=== PATIENT | male | born 1965 | race Caucasian/White ===

== ENCOUNTER 2017-04-24 22:00 | Emergency (ER) | payer BC ==
[2017-04-24] MEDS ORDERED: NORCO 5/325 MG PO ONE (22:36)
--- NOTE | 2017-04-24 22:37 | ERPHSYRPT ---
- History of Present Illness Time Seen by Provider: 04/24/17 22:25 Source: patient Exam Limitations: no limitations Physician History: THREE DAYS AGO PT WAS ON A [id number] AT [facility], LANDED WRONG AND SINCE HAS HAD ACHY PAIN IN THE RIGHT RIBS AND MID UPPER BACK; DENIES ABDOMINAL PAIN, NUMBNESS, VOMITING, FEVER. RIGHT RIB PAIN OCCURS ONLY WITH MOVEMENT AND DEEP BREATHING. Allergies/Adverse Reactions: No Known Drug Allergies Allergy (Unverified 06/15/15 09:59) Hx Tetanus, Diphtheria Vaccination/Date Given: No Hx Influenza Vaccination/Date Given: No Hx Pneumococcal Vaccination/Date Given: No - Review of Systems Constitutional: No Fever Cardiac: Other (RIGHT RIB PAIN) Abdominal/Gastrointestinal: No Abdominal Pain, No Vomiting Musculoskeletal: Back Pain (MID UPPER BACK PAIN) Neurological: No Headache All Other Systems: Reviewed and Negative - Past Medical History Pertinent Past Medical History: Yes Neurological History: No Pertinent History ENT History: No Pertinent History Cardiac History: High Cholesterol, Hypertension Respiratory History: Sleep Apnea Endocrine Medical History: No Pertinent History Musculoskeletal History: Arthritis, Other GI Medical History: No Pertinent History History: No Pertinent History Psycho-Social History: No Pertinent History Male Reproductive Disorders: No Pertinent History Other Medical History: Gout - Past Surgical History Past Surgical History: Yes Neuro Surgical History: No Pertinent History Cardiac: No Pertinent History Respiratory: No Pertinent History Gastrointestinal: Hernia Repair Genitourinary: No Pertinent History Musculoskeletal: Orthopedic Surgery Male Surgical History: No Pertinent History Other Surgical History: rt elbow i/d,Knee arthroscopy - Social History Smoking Status: Never smoker Exposure to second hand smoke: No Drug Use: none Patient Lives Alone: No - Nursing Vital Signs Nursing Vital Signs: Initial Vital Signs Temperature 98.0 F 04/24/17 22:34 Pulse Rate 54 L 04/24/17 22:34 Respiratory Rate 18 04/24/17 22:34 Blood Pressure 147/102 04/24/17 22:34 O2 Sat by Pulse Oximetry 95 04/24/17 22:34 Pain Scale Pain Intensity 10 - Physical Exam General Appearance: alert Eye Exam: PERRL/EOMI Ears, Nose, Throat Exam: pharynx normal, moist mucous membranes, other (CERUMEN OCCLUSION OF LEFT EAR) Neck Exam: normal inspection Respiratory Exam: normal breath sounds, No chest tenderness Cardiovascular Exam: normal heart sounds Gastrointestinal/Abdomen Exam: soft, normal bowel sounds Back Exam: normal inspection Extremity Exam: normal inspection, No pedal edema Neurologic Exam: alert, cooperative Skin Exam: warm, dry - Course Nursing assessment & vital signs reviewed: Yes - Radiology Exams Right Ribs X-ray Interpretation: Teleradiologist Report (PROBABLE ACUTE NONDISPLACED RIGHT SIXTH RIB FRACTURE.) T-Spine X-ray Interpretation: Teleradiologist Report (NO FX) Ordered Tests: Active Orders 24 hr Category Date Time Status RIBS UNILATERAL Stat Exams 04/24/17 22:36 Taken THORACIC SPINE (AP,LAT,SWIMM) Stat Exams 04/25/17 00:06 Ordered Medication Summary Discontinued Medications Generic Name Dose Route Start Last Admin Trade Name Freq PRN Reason Stop Dose Admin Hydrocodone Bitart/Acetaminophen 2 tab 04/24/17 22:36 04/24/17 22:46 [place] 5/325 Mg PO 04/24/17 22:37 2 tab STAT ONE Administration Hydrocodone Bitart/Acetaminophen Confirm 04/24/17 22:45 [place] 5/325 Mg Administered 04/24/17 22:46 Dose 2 tab .ROUTE .STK-MED ONE - Departure Time of Disposition: 00:56 Departure Disposition: Home Clinical Impression: RIGHT SIXTH RIB FRACTURE, MID BACK PAIN Condition: Stable Critical Care Time: No Referrals: GABY CHAUHAN MD [Primary Care Provider] - Instructions: Rib Fracture Additional Instructions: FOLLOW UP WITH PRIVATE DOCTOR TOMORROW. SLEEP ON LEFT SIDE. Prescriptions: Hydrocodone Bit/Acetaminophen [[place] 7.5-325 Tablet] 1 each PO Q4H PRN PRN #14 tablet PRN Reason: Pain
[2017-04-24 22:40] VITALS: BP 147/102; PULSE 54; O2SAT 95
[2017-04-24] MEDS ORDERED: NORCO 5/325 MG ONE (22:45)
--- NOTE | 2017-04-25 09:06 | XRAY ---
Indication: Pain following fall 4 days ago. Comparison: None Frontal/lateral thoracic spine demonstrates minimal lower thoracic degenerative endplate spurring. A few mid thoracic segments demonstrates very minimal anterior height loss unchanged with respect to chest radiograph June 26, 2008 and probably normal. No other bony, articular, or soft tissue abnormalities. Comment: Preliminary interpretation was made by C. No discrepancy.
--- NOTE | 2017-04-25 09:11 | XRAY ---
Indication: Pain following fall 4 days ago. Comparison: None 2 views of the right ribs demonstrates mild shoulder and spinal degenerative changes. Query nondisplaced lateral 6th rib fracture. No other bony, articular, or soft tissue abnormalities. Comment: Preliminary interpretation was made by [facility]. No discrepancy.
== END 2017-04-25 01:05 | disposition home or self-care (01) ==
LOC: ED 22:00
DX: S22.31XA Fracture of one rib, right side, initial encounter for closed fracture (principal); W01.0XXA Fall on same level from slipping, tripping and stumbling without subsequent striking against object, initial encounter; Y93.18 Activity, surfing, windsurfing and boogie boarding; M54.6 Pain in thoracic spine
CPT/HCPCS: 71100; 72072; 99283; 99284; A9270-GY

== ENCOUNTER 2019-03-20 06:21 | Day surgery (SDC) | payer BC ==
[2019-03-20] MEDS ORDERED: Lactated Ringers 1,000 ML IV SCH (06:30)
[2019-03-20] MEDS ORDERED: DIPRIVAN 200 MG/20 ML IV ONE ×2 (07:42→07:44)
--- NOTE | 2019-03-20 08:28 | OP ---
SURGERY DATE/TIME: 03/20/2019 0735 PREOPERATIVE DIAGNOSIS: Screening colonoscopy. POSTOPERATIVE DIAGNOSES: 1) Transverse colon polyp. 2) Diverticulosis. PROCEDURE: Colonoscopy. SURGEON: Yahir Smith M.D. ANESTHESIA: MAC by Gildardo Cadena CRNA. ESTIMATED BLOOD LOSS: Minimal. SPECIMENS: Hot forceps polypectomy x1. DESCRIPTION OF PROCEDURE: After informed written consent was obtained, the patient was taken to the endoscopy suite. He underwent monitored anesthesia and digital rectal exam showed normal sphincter tone and no internal lesions. The scope was inserted into the rectum and sequentially the entire colonic mucosa was traversed. The level of cecum was reached and verified with direct visualization of ileocecal valve. Upon withdrawal careful mucosal inspection revealed diffuse scattered diverticula. There was a sessile polyp in the distal transverse colon near the splenic flexure which was grasped with forceps and cautery was used to cauterize the lesion and we removed it in its entirety. There was no bleeding following removal. The entire lesion appeared to be successfully removed and sent for pathology testing. Upon withdrawal more diverticulosis was noted but no other lesions. Retroflexion was performed prior to withdrawal and showed no internal lesions. The scope was removed and the patient was transferred to the recovery room in good condition.
[2019-03-20 08:56] VITALS: BP 156/100; PULSE 59; O2SAT 96
== END 2019-03-20 09:14 | disposition home or self-care (01) ==
LOC: SDC 06:21
PROVIDERS: ATTEND Family Medicine
DX: Z12.11 Encounter for screening for malignant neoplasm of colon (principal); K57.30 Diverticulosis of large intestine without perforation or abscess without bleeding; K63.5 Polyp of colon
CPT/HCPCS: 88305; J2704

== ENCOUNTER 2019-05-28 09:08 | Day surgery (SDC) | payer BC ==
[2019-05-28] MEDS ORDERED: Xylocaine 1% Vial 30 ML PF IJ ONE (09:09)
[2019-05-28] MEDS ORDERED: Depo-Medrol 40 MG/ML IM ONE (09:09)
[2019-05-28] MEDS ORDERED: Marcaine 0.5% SDV 10 ML IJ ONE (09:09)
--- NOTE | 2019-05-28 12:58 | XRAY ---
Indication: Left knee injection. Intraoperative fluoroscopy was provided for 5 seconds. Single digital spot image submitted for interpretation demonstrates needle tip projecting over the left femur intercondylar notch. Small amount of contrast injected for needle tip placement. Correlate with intraoperative findings/report.
--- NOTE | 2019-05-28 12:58 | XRAY ---
Indication: Right knee injection. Intraoperative fluoroscopy was provided for 10 seconds. Single digital spot image submitted for interpretation demonstrates needle tip projecting over the right femur intercondylar notch. Small amount of contrast injected for needle tip placement. Correlate with intraoperative findings/report.
--- NOTE | 2019-05-28 13:05 | XRAY ---
5 seconds fluoroscopy time in surgery for left knee injection.
--- NOTE | 2019-05-28 13:05 | XRAY ---
10 seconds fluoroscopy time in surgery for right knee injection.
== END 2019-05-28 10:45 | disposition home or self-care (01) ==
LOC: SDC-PAIN 09:08
PROVIDERS: ATTEND Psychiatry & Neurology Pain Medicine
DX: M17.0 Bilateral primary osteoarthritis of knee (principal); I10 Essential (primary) hypertension; M06.9 Rheumatoid arthritis, unspecified; Z79.899 Other long term (current) drug therapy
CPT/HCPCS: 73560; 77002; J1030; J2001

== ENCOUNTER 2019-08-14 23:30 | Emergency (ER) | payer BC ==
--- NOTE | 2019-08-14 23:32 | ERPHSYRPT ---
- History of Present Illness Time Seen by Provider: 08/14/19 23:32 Source: patient, family Exam Limitations: no limitations Physician History: 54 y/o white male presents with worsening postoperative right shoulder pain with associated swelling. pts surgery performed 08/05/19. pt has an appt to seen his surgeon, dr. hines, on Sunday08/18/19. sudden onset at approx 6pm today. pt took his norco pain meds and ice pack helped. swelling improved then recurred as did the pain later this evening. pt took two norco at 10pm and pain not improved. pt denies cp. no acute injury. Timing/Duration: today, hour(s) (6) Severity: moderate Modifying Factors: Improves With: movement Associated Symptoms: denies symptoms Allergies/Adverse Reactions: No Known Drug Allergies Allergy (Verified 08/14/19 23:48) Home Medications: Hydrocodone/Acetaminophen [Hydrocodone-Acetamin 10-325 mg] 10 mg PO TID PRN [History] Hydroxychloroquine Sulfate [Plaquenil] 200 mg PO BID 08/14/19 [History] Hx Tetanus, Diphtheria Vaccination/Date Given: No Hx Influenza Vaccination/Date Given: No Hx Pneumococcal Vaccination/Date Given: No - Review of Systems Eyes: No Symptoms Ears, Nose, & Throat: No Symptoms Respiratory: No Symptoms Cardiac: No Symptoms Abdominal/Gastrointestinal: No Symptoms Genitourinary Symptoms: No Symptoms Musculoskeletal: Other (postop right shoulder pain) Skin: No Symptoms Neurological: No Symptoms Psychological: No Symptoms Endocrine: No Symptoms Hematologic/Lymphatic: No Symptoms Immunological/Allergic: No Symptoms All Other Systems: Reviewed and Negative - Past Medical History Pertinent Past Medical History: Yes Neurological History: No Pertinent History ENT History: No Pertinent History Cardiac History: High Cholesterol, Hypertension Respiratory History: No Pertinent History Endocrine Medical History: No Pertinent History Musculoskeletal History: Arthritis, Rheumatoid Arthritis GI Medical History: Hernia History: No Pertinent History Psycho-Social History: No Pertinent History Male Reproductive Disorders: No Pertinent History Other Medical History: Gout in B elbows, toes and knees. - Past Surgical History Past Surgical History: Yes Neuro Surgical History: No Pertinent History Cardiac: No Pertinent History Respiratory: No Pertinent History Gastrointestinal: Hernia Repair Genitourinary: No Pertinent History Musculoskeletal: Orthopedic Surgery Male Surgical History: No Pertinent History Other Surgical History: rt elbow i/d,Knee arthroscopy - Social History Smoking Status: Never smoker Exposure to second hand smoke: No Drug Use: none Patient Lives Alone: No - Nursing Vital Signs Nursing Vital Signs: Initial Vital Signs Temperature 98.0 F 08/14/19 23:35 Pulse Rate 66 08/14/19 23:35 Respiratory Rate 18 08/14/19 23:35 O2 Sat by Pulse Oximetry 97 08/14/19 23:35 Pain Scale Pain Intensity 10 - Physical Exam General Appearance: mild distress, alert, anxiety Eye Exam: PERRL/EOMI, eyes nml inspection Ears, Nose, Throat Exam: normal ENT inspection, moist mucous membranes Neck Exam: normal inspection, non-tender, supple, full range of motion Respiratory Exam: lungs clear, No chest tenderness, No respiratory distress, No airway intact Gastrointestinal/Abdomen Exam: soft, normal bowel sounds, tenderness Rectal Exam: not done Back Exam: normal inspection, normal range of motion, No CVA tenderness, No vertebral tenderness Extremity Exam: limited range of motion, swelling, tenderness, other (pts right shoulder/upper ext in postop brace. pt without evidence of compartment syndrome. palpable strong right radial pulse) Neurologic Exam: alert, oriented x 3, cooperative, cork grinder II-XII nml as tested Skin Exam: other (post op incision site healing well. no evidence of infection. swelling present.) Lymphatic Exam: No adenopathy SpO2 Interpretation: normal O2 Delivery: Room Air - Course Nursing assessment & vital signs reviewed: Yes Ordered Tests: Active Orders 24 hr Category Date Time Status IV Insertion STAT Care 08/14/19 23:46 Active Medication Summary Discontinued Medications Generic Name Dose Route Start Last Admin Trade Name Ziyad PRN Reason Stop Dose Admin Hydromorphone HCl 1 mg 08/14/19 23:45 08/14/19 23:56 Hydromorphone 1 Mg/Ml Ampule IV 08/14/19 23:46 1 mg STAT ONE Administration Hydromorphone HCl Confirm 08/14/19 23:54 Hydromorphone 1 Mg/Ml Ampule Administered 08/14/19 23:55 Dose 1 mg .ROUTE .STK-MED ONE Lorazepam 1 mg 08/14/19 23:46 08/14/19 23:58 Ativan 2 Mg/1 Ml Vial IV 08/14/19 23:47 1 mg STAT ONE Administration Lorazepam Confirm 08/14/19 23:54 Ativan 2 Mg/1 Ml Vial Administered 08/14/19 23:55 Dose 2 mg .ROUTE .STK-MED ONE Ondansetron HCl 4 mg 08/14/19 23:46 08/14/19 23:58 Zofran 4 Mg/2 Ml Vial IV 08/14/19 23:47 4 mg STAT ONE Administration Ondansetron HCl Confirm 08/14/19 23:53 Zofran 4 Mg/2 Ml Vial Administered 08/14/19 23:54 Dose 4 mg .ROUTE .STK-MED ONE - Progress Progress: improved, pain not gone completely, re-examined Progress Note: 08/15/19 00:18 pt states pain more tolerable now. Counseled pt/family regarding: diagnosis, need for follow-up - Departure Departure Disposition: Home Clinical Impression: Postoperative pain Condition: Stable Critical Care Time: No Referrals: GABY CHAUHAN MD [Primary Care Provider] - Additional Instructions: ice pack on site until evaluated by dr. hines. call dr. hines office at 0800 this morning to arrange for evaluation TODAY. take your pain medications as discussed and add the oral ativan as a muscle relaxant at 0430 this morning.
[2019-08-14] MEDS ORDERED: Hydromorphone 1 mg/ml Ampule IV ONE (23:45)
[2019-08-14] MEDS ORDERED: Ativan 2 MG/1 ML VIAL IV ONE (23:46)
[2019-08-14] MEDS ORDERED: Zofran 4 MG/2 ML VIAL IV ONE (23:46)
[2019-08-14 23:48] VITALS: O2SAT 97
[2019-08-14] MEDS ORDERED: Zofran 4 MG/2 ML VIAL ONE (23:53)
[2019-08-14] MEDS ORDERED: Ativan 2 MG/1 ML VIAL ONE (23:54)
[2019-08-14] MEDS ORDERED: Hydromorphone 1 mg/ml Ampule ONE (23:54)
[2019-08-15] MEDS ORDERED: Ativan 1 MG PO ONE (00:21)
[2019-08-15] MEDS ORDERED: Ativan 1 MG ONE (00:35)
[2019-08-15 00:44] VITALS: BP 156/94; PULSE 74
== END 2019-08-15 00:50 | disposition home or self-care (01) ==
LOC: ED 23:30
DX: G89.18 Other acute postprocedural pain (principal); M25.511 Pain in right shoulder; Z79.891 Long term (current) use of opiate analgesic; Z79.899 Other long term (current) drug therapy; I10 Essential (primary) hypertension; E78.00 Pure hypercholesterolemia, unspecified
CPT/HCPCS: 36000; 96374; 96375; 99284; J1170; J2060; J2405; A9270-GY

== ENCOUNTER 2019-10-18 10:11 | Emergency (ER) | payer BC ==
[2019-10-18] MEDS ORDERED: Celestone Soluspan 6MG/ML IM ONE (10:25)
[2019-10-18 10:26] VITALS: BP 154/88; PULSE 68; O2SAT 96
[2019-10-18] MEDS ORDERED: Celestone Soluspan 6MG/ML ONE (10:31)
--- NOTE | 2019-10-18 10:31 | ERPHSYRPT ---
- History of Present Illness Time Seen by Provider: 10/18/19 10:26 Source: patient Exam Limitations: no limitations Patient Subjective Stated Complaint: Pt states "I noticed a spot on my foot on sunday and now I have them on my hands and face." Triage Nursing Assessment: Pt presented alert and orineted X 3, skin pwd Pt ambulates with an upright steady gait, able to speak in clear full sentenecs pt has blisters on feet, hands, and mouth. Physician History: Pt states "I noticed a spot on my foot on sunday and now I have them on my hands and face." Timing/Duration: yesterday Quality: itchy Location: face, hands, feet, extremities Possible Causes: exposure to illness Associated Symptoms: denies symptoms Allergies/Adverse Reactions: No Known Drug Allergies Allergy (Verified 08/14/19 23:48) Home Medications: Hydrocodone/Acetaminophen [Hydrocodone-Acetamin 10-325 mg] 10 mg PO TID PRN [History] Hydroxychloroquine Sulfate [Plaquenil] 200 mg PO BID 08/14/19 [History] Hx Tetanus, Diphtheria Vaccination/Date Given: No Hx Influenza Vaccination/Date Given: No Hx Pneumococcal Vaccination/Date Given: No Immunizations Up to Date: Yes - Review of Systems Constitutional: No Fever, No Chills Eyes: No Symptoms Ears, Nose, & Throat: No Symptoms Respiratory: No Cough, No Dyspnea Cardiac: No Chest Pain, No Edema, No Syncope Abdominal/Gastrointestinal: No Abdominal Pain, No Nausea, No Vomiting, No Diarrhea Genitourinary Symptoms: No Dysuria Musculoskeletal: No Back Pain, No Neck Pain Skin: No Rash Neurological: No Dizziness, No Focal Weakness, No Sensory Changes Psychological: No Symptoms Endocrine: No Symptoms All Other Systems: Reviewed and Negative - Past Medical History Pertinent Past Medical History: Yes Neurological History: No Pertinent History ENT History: No Pertinent History Cardiac History: High Cholesterol, Hypertension Respiratory History: No Pertinent History Endocrine Medical History: No Pertinent History Musculoskeletal History: Arthritis, Rheumatoid Arthritis GI Medical History: Hernia History: No Pertinent History Psycho-Social History: No Pertinent History Male Reproductive Disorders: No Pertinent History Other Medical History: Gout in B elbows, toes and knees. - Past Surgical History Past Surgical History: Yes Neuro Surgical History: No Pertinent History Cardiac: No Pertinent History Respiratory: No Pertinent History Gastrointestinal: Hernia Repair Genitourinary: No Pertinent History Musculoskeletal: Orthopedic Surgery Male Surgical History: No Pertinent History Other Surgical History: rt elbow i/d,Knee arthroscopy. shoulder rt - Social History Smoking Status: Never smoker Exposure to second hand smoke: Yes Drug Use: none Patient Lives Alone: No - Nursing Vital Signs Nursing Vital Signs: Initial Vital Signs Temperature 97.8 F 10/18/19 10:15 Pulse Rate 68 10/18/19 10:15 Respiratory Rate 18 10/18/19 10:15 Blood Pressure 154/88 10/18/19 10:15 O2 Sat by Pulse Oximetry 96 10/18/19 10:15 Pain Scale Pain Intensity 4 - Physical Exam General Appearance: no apparent distress, alert Eye Exam: PERRL/EOMI, eyes nml inspection Ears, Nose, Throat Exam: normal ENT inspection, pharynx normal, moist mucous membranes Neck Exam: normal inspection, non-tender, supple, full range of motion Respiratory Exam: normal breath sounds, lungs clear, No respiratory distress Cardiovascular Exam: regular rate/rhythm, normal heart sounds Gastrointestinal/Abdomen Exam: soft, mass, No tenderness Back Exam: normal inspection, normal range of motion, No CVA tenderness, No vertebral tenderness Extremity Exam: normal inspection, normal range of motion Neurologic Exam: alert, oriented x 3, cooperative, normal mood/affect, sensation nml, No motor deficits Skin Exam: normal color, warm, dry SpO2: 96 - Course Nursing assessment & vital signs reviewed: Yes Ordered Tests: Medication Summary Discontinued Medications Generic Name Dose Route Start Last Admin Trade Name Freq PRN Reason Stop Dose Admin Betamethasone Acet/Betameth SodPhos 12 mg 10/18/19 10:25 Celestone Soluspan 6mg/Ml IM 10/18/19 10:26 STAT ONE - Progress Progress: unchanged Counseled pt/family regarding: diagnosis, need for follow-up - Departure Departure Disposition: Home Clinical Impression: Hand, foot and mouth disease (HFMD) Condition: Stable Critical Care Time: No Referrals: GABY CHAUHAN MD [Primary Care Provider] - Instructions: Hand, Foot, and Mouth Disease (DC), Hand, Foot, and Mouth Disease
== END 2019-10-18 10:41 | disposition home or self-care (01) ==
LOC: ED 10:11
DX: B08.4 Enteroviral vesicular stomatitis with exanthem (principal)
CPT/HCPCS: 96372; 99283; J0702

== ENCOUNTER 2020-02-11 12:36 | Day surgery (SDC) | payer BC ==
[2020-02-11] MEDS ORDERED: Marcaine 0.5% SDV 10 ML IJ ONE (12:37)
[2020-02-11] MEDS ORDERED: DIPRIVAN 200 MG/20 ML IV ONE (13:12)
[2020-02-11] MEDS ORDERED: Ketamine HCl 50 MG/ML ONE (13:13)
[2020-02-11] MEDS ORDERED: Lactated Ringers 1,000 ML IV ONE (15:18)
--- NOTE | 2020-02-11 16:31 | XRAY ---
15 seconds fluoroscopy time in surgery for right genicular nerve block.
--- NOTE | 2020-02-11 16:41 | XRAY ---
9 seconds fluoroscopy time in surgery for left genicular nerve block.
--- NOTE | 2020-02-14 19:54 | XRAY ---
Indication: Right knee genicular nerve block. Intraoperative fluoroscopy was provided for 15 seconds. 2 digital spot images submitted for interpretation demonstrate needle tips at both the medial margin and the lateral margin of the supracondylar region of the distal right femur. A third needle tip is noted at the medial margin of the proximal right tibia. Correlate with intraoperative findings/report.
--- NOTE | 2020-02-14 19:56 | XRAY ---
Indication: Left knee genicular nerve block. Intraoperative fluoroscopy was provided for 9 seconds. 2 digital spot views submitted for interpretation demonstrate needle tips to be at both the medial margin and lateral margin of the supracondylar region of the distal left femur. A third needle tip is seen at the medial margin of the proximal left tibia. Correlate with intraoperative findings/report.
== END 2020-02-11 13:43 | disposition home or self-care (01) ==
LOC: SDC-PAIN 12:36
PROVIDERS: ATTEND Psychiatry & Neurology Pain Medicine
DX: M17.0 Bilateral primary osteoarthritis of knee (principal); I10 Essential (primary) hypertension; M06.9 Rheumatoid arthritis, unspecified; Z79.899 Other long term (current) drug therapy
CPT/HCPCS: 64450; 64454; 73560; 77002; J2704

== ENCOUNTER 2020-03-24 15:12 | Day surgery (SDC) | payer BC ==
[2020-03-24] MEDS ORDERED: Marcaine 0.5% SDV 10 ML IJ ONE (15:13)
[2020-03-24] MEDS ORDERED: Depo-Medrol 40 MG/ML IM ONE (15:13)
[2020-03-24] MEDS ORDERED: Xylocaine 1% Vial 30 ML PF IJ ONE (15:13)
--- NOTE | 2020-03-24 16:34 | XRAY ---
Indication: Right knee injection. Intraoperative fluoroscopy was provided for 9 seconds. Single digital spot images submitted for interpretation demonstrates anterior needle tip projecting right femur intercondylar notch. Small amount of contrast injected for needle tip placement. Correlate with intraoperative findings/report.
--- NOTE | 2020-03-24 16:34 | XRAY ---
Indication: Left knee injection. Intraoperative fluoroscopy was provided for 6 seconds. Single digital spot images submitted for interpretation demonstrates anterior needle tip projecting left femur intercondylar notch. Small amount of contrast injected for needle tip placement. Correlate with intraoperative findings/report.
--- NOTE | 2020-03-24 16:39 | XRAY ---
6 seconds fluoroscopy time in surgery for left knee intra-articular knee injection.
--- NOTE | 2020-03-24 16:48 | XRAY ---
9 seconds fluoroscopy time in surgery for right knee intra-articular knee injection.
== END 2020-03-24 16:17 | disposition home or self-care (01) ==
LOC: SDC-PAIN 15:12
PROVIDERS: ATTEND Psychiatry & Neurology Pain Medicine
DX: M17.0 Bilateral primary osteoarthritis of knee (principal); I10 Essential (primary) hypertension; M06.9 Rheumatoid arthritis, unspecified; Z79.899 Other long term (current) drug therapy
CPT/HCPCS: 20610; 73560; 77002; J1030; J2001; Q9966

== ENCOUNTER 2021-01-19 11:28 | Day surgery (SDC) | payer MEDICARE ==
[2021-01-19] MEDS ORDERED: Xylocaine 1% Vial 30 ML PF IJ ONE (11:29)
[2021-01-19] MEDS ORDERED: Depo-Medrol 40 MG/ML IM ONE (11:29)
[2021-01-19] MEDS ORDERED: BUPIVACAINE 0.5% VIAL IJ ONE (11:29)
--- NOTE | 2021-01-19 16:12 | XRAY ---
7 seconds fluoroscopy time in surgery for intra-articular injection of the left knee.
--- NOTE | 2021-01-20 22:24 | XRAY ---
Indication: Left knee injection. Intraoperative fluoroscopy was provided for 7 seconds. A single digital spot image submitted for interpretation demonstrates the anterior needle tip projected over the right femur intercondylar notch. A small amount contrast has been injected for needle tip placement. Correlate with intraoperative findings/report.
== END 2021-01-19 13:18 | disposition home or self-care (01) ==
LOC: SDC-PAIN 11:28
PROVIDERS: ATTEND Psychiatry & Neurology Pain Medicine
DX: M17.12 Unilateral primary osteoarthritis, left knee (principal); I10 Essential (primary) hypertension; M06.9 Rheumatoid arthritis, unspecified; Z79.899 Other long term (current) drug therapy
CPT/HCPCS: 20610; 73560; 77002; J1030; J2001; Q9966

== ENCOUNTER 2023-01-10 14:07 | Day surgery (SDC) | payer MEDICARE ==
[2023-01-10] MEDS ORDERED: BUPIVACAINE 0.5% VIAL IJ ONE (14:08)
[2023-01-10] MEDS ORDERED: Depo-Medrol 40 MG/ML IM ONE (14:08)
[2023-01-10] MEDS ORDERED: DIPRIVAN 200 MG/20 ML IV ONE (15:39)
[2023-01-10] MEDS ORDERED: Lactated Ringers 1,000 ML IV ONE (16:19)
--- NOTE | 2023-01-10 16:37 | XRAY ---
Indication: Right L4-S1 MBB. Intraoperative fluoroscopy provided for 9 seconds. Single digital spot image submitted for interpretation demonstrates posterior needle tips projecting over the expected right L4-S1 nerve roots. Correlate with intraoperative findings/report.
--- NOTE | 2023-01-10 16:43 | XRAY ---
9 seconds of fluoroscopy was used in surgery for a bilateral L4-S1 MBB.
== END 2023-01-10 16:10 | disposition home or self-care (01) ==
LOC: SDC-PAIN 14:07
PROVIDERS: ATTEND Psychiatry & Neurology Pain Medicine
DX: M47.816 Spondylosis without myelopathy or radiculopathy, lumbar region (principal); Z79.899 Other long term (current) drug therapy
CPT/HCPCS: 64493; 64494; 72020; 77002; J1030; J2704

== ENCOUNTER 2023-01-17 15:49 | Day surgery (SDC) | payer MEDICARE ==
[2023-01-17] MEDS ORDERED: BUPIVACAINE 0.5% VIAL IJ ONE (15:50)
[2023-01-17] MEDS ORDERED: Depo-Medrol 40 MG/ML IM ONE (15:50)
[2023-01-17] MEDS ORDERED: LIDOCAINE HCL 1% 50 MG/5 ML VL PF IJ ONE (15:50)
--- NOTE | 2023-01-17 18:49 | XRAY ---
Indication: Left knee injection. Intraoperative fluoroscopy provided for 11 seconds. Single digital spot image submitted for interpretation demonstrates needle tip projecting over the left femur intercondylar notch. Small amount of contrast injected for needle tip placement. Correlate with intraoperative findings/report.
--- NOTE | 2023-01-18 08:47 | XRAY ---
11 seconds of fluoroscopy was used in surgery for a left knee intra-articular injection.
== END 2023-01-17 18:34 | disposition home or self-care (01) ==
LOC: SDC-PAIN 15:49
PROVIDERS: ATTEND Psychiatry & Neurology Pain Medicine
DX: M17.12 Unilateral primary osteoarthritis, left knee (principal); Z79.899 Other long term (current) drug therapy
CPT/HCPCS: 20610; 73560; 77002; J1030; J2001; Q9966

== ENCOUNTER 2023-02-07 11:05 | Day surgery (SDC) | payer MEDICARE ==
[2023-02-07] MEDS ORDERED: Depo-Medrol 40 MG/ML IM ONE (11:06)
[2023-02-07] MEDS ORDERED: BUPIVACAINE 0.5% VIAL IJ ONE (11:06)
[2023-02-07] MEDS ORDERED: DIPRIVAN 200 MG/20 ML IV ONE (13:05)
[2023-02-07] MEDS ORDERED: Xylocaine-Mpf 2% 5 Ml Vial ONE (13:09)
[2023-02-07] MEDS ORDERED: Lactated Ringers 1,000 ML IV ONE (14:20)
--- NOTE | 2023-02-08 07:17 | XRAY ---
19 seconds of fluoroscopy was used in surgery for a right L4-S1 MBB.
--- NOTE | 2023-02-08 15:07 | XRAY ---
Indication: Right L4-S1 MBB Intraoperative fluoroscopy provided for 19 seconds. Single digital spot image submitted for interpretation demonstrates posterior needle tips projecting over the expected right L4-S1 nerve roots. Correlate with intraoperative findings/report.
== END 2023-02-07 13:35 | disposition home or self-care (01) ==
LOC: SDC-PAIN 11:05
PROVIDERS: ATTEND Psychiatry & Neurology Pain Medicine
DX: M47.816 Spondylosis without myelopathy or radiculopathy, lumbar region (principal); Z79.899 Other long term (current) drug therapy
CPT/HCPCS: 64493; 64494; 72020; 77002; J1030; J2704

== ENCOUNTER 2023-03-14 09:49 | Day surgery (SDC) | payer MEDICARE ==
[2023-03-14] MEDS ORDERED: BUPIVACAINE 0.5% VIAL IJ ONE (09:50)
[2023-03-14] MEDS ORDERED: LIDOCAINE HCL 1% 50 MG/5 ML VL PF IJ ONE (09:50)
[2023-03-14] MEDS ORDERED: Depo-Medrol 40 MG/ML IM ONE (09:50)
[2023-03-14] MEDS ORDERED: DIPRIVAN 200 MG/20 ML IV ONE (11:29)
[2023-03-14] MEDS ORDERED: Versed 2 MG/2 ML Injection ONE (11:35)
--- NOTE | 2023-03-14 13:48 | XRAY ---
Indication: Right L4-S1 RFA. Intraoperative fluoroscopy provided for 24 seconds. 4 digital spot images submitted for interpretation demonstrates posterior needle tips projecting over the expected right L4-S1 nerve roots. Correlate with intraoperative findings/report.
--- NOTE | 2023-03-14 13:52 | XRAY ---
24 seconds of fluoroscopy was used in surgery for a right L4-S1 RFA.
[2023-03-14] MEDS ORDERED: Lactated Ringers 1,000 ML IV ONE (13:56)
== END 2023-03-14 12:05 | disposition home or self-care (01) ==
LOC: SDC-PAIN 09:49
PROVIDERS: ATTEND Psychiatry & Neurology Pain Medicine
DX: M47.816 Spondylosis without myelopathy or radiculopathy, lumbar region (principal); Z79.899 Other long term (current) drug therapy
CPT/HCPCS: 64635; 64636; 72100; 77002; J1030; J2001; J2250; J2704

== ENCOUNTER 2025-01-08 15:37 | Day surgery (SDC) | payer MEDICARE ==
[2025-01-08] MEDS ORDERED: LIDOCAINE HCL 1% AMPUL 5 ML IJ ONE (15:38)
[2025-01-08] MEDS ORDERED: Depo-Medrol 40 MG/ML IM ONE (15:38)
[2025-01-08] MEDS ORDERED: BUPIVACAINE 0.5% VIAL IJ ONE (15:38)
--- NOTE | 2025-01-08 19:51 | XRAY ---
Indication: Left knee injection. Intraoperative fluoroscopy provided for 9 seconds. Single digital spot image submitted for interpretation demonstrates needle tip projecting over left femur intercondylar notch. Small amount of contrast injected for needle tip placement. Correlate with intraoperative findings/report.
--- NOTE | 2025-01-09 18:03 | XRAY ---
9 seconds of fluoroscopy was used in surgery for a left intra-articular knee injection.
== END 2025-01-08 17:30 | disposition home or self-care (01) ==
LOC: SDC-PAIN 15:37
PROVIDERS: ATTEND Psychiatry & Neurology Pain Medicine
DX: M17.12 Unilateral primary osteoarthritis, left knee (principal); E11.9 Type 2 diabetes mellitus without complications
CPT/HCPCS: 20610; 73560; 77002; Q9966